=== PATIENT | female | born 1995 | race Caucasian/White ===

== ENCOUNTER 2018-10-21 17:35 | Emergency (ER) | payer BC, OTHER ==
[2018-10-21 17:52] VITALS: BP 122/57
--- NOTE | 2018-10-21 18:09 | UC ---
Lower Extremity/Ankle HPI - HPI Summary HPI Summary: 22-year-old female who injured her right ankle at work on October 16, 2018. 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 She was seen in [place] emergency room, had x-rays done and was told she had an ankle sprain. She used crutches yesterday and today she returned to work to a full 8 hour.she had some swelling and pain today so her employer sent her here for a recheck. - History of Current Complaint Chief Complaint: UCLowerExtremity Stated Complaint: WC RIGHT ANKLE INJURY Time Seen by Provider: 10/21/18 17:41 Hx Obtained From: Patient Hx Last Menstrual Period: 09/28/18 ?: No Onset/Duration: Gradual Onset Severity Initially: Moderate Severity Currently: Mild Pain Intensity: 3 Aggravating Factor(s): Ambulation Alleviating Factor(s): Rest, Elevation Able to Bear Weight: Yes Related History: Occupational Injury - Allergies/Home Medications Allergies/Adverse Reactions: Allergies Allergy/AdvReac Type Severity Reaction Status Date / Time No Known Allergies Allergy Verified 10/21/18 17:52 PMH/Surg Hx/FS Hx/Imm Hx Previously Healthy: Yes - Surgical History Surgical History: None - Family History Known Family History: Positive: Non-Contributory - Social History Occupation: Employed Full-time Alcohol Use: None Substance Use Type: None Smoking Status (MU): Never Smoked Tobacco - Immunization History Vaccination Up to Date: Yes Review of Systems All Other Systems Reviewed And Are Negative: Yes Musculoskeletal: Positive: Other: - Mild swelling to the lateral ankle. Is Patient Immunocompromised?: No Physical Exam Triage Information Reviewed: Yes Appearance: Well-Appearing, No Pain Distress, Well-Nourished Vital Signs: Initial Vital Signs Temp 98.7 F 10/21/18 17:47 Pulse 79 10/21/18 17:47 Resp 16 10/21/18 17:47 BP 122/57 10/21/18 17:47 Pulse Ox 100 10/21/18 17:47 Vital Signs Reviewed: Yes Musculoskeletal: Positive: Strength Intact, ROM Intact, Other: - Achilles is intact, mild swelling to the lateral malleolus, minimal tenderness on palpation , no deformity, erythema, bruising is noted. Good peripheral pulses neuro sensation and capillary refill. Nontender at the base of the first and fifth metatarsal. Neurological Exam: Normal Psychological Exam: Normal Skin Exam: Normal Lower Extremity Course/Dx - Course Course Of Treatment: Patient basically needed a note for work because she had some swelling and pain today when she was doing her job as a channeler insole. I'm giving her a note for work for light duty for one week and no excessive walking. She preferred to follow-up with an orthopedist in [place], [place]. She also has a Velcro ankle brace that she has been using and I encouraged her to into new using that. When she is taking a break at work she is to elevate her foot as much as possible. - Differential Dx/Diagnosis Provider Diagnosis: Right ankle sprain Discharge - Sign-Out/Discharge Documenting (check all that apply): Patient Departure All imaging exams completed and their final reports reviewed: No Studies - Discharge Plan Condition: Good Disposition: HOME Patient Education Materials: Ankle Sprain (DC) Forms: *Work Release Referrals: Kb Cornell PA [Primary Care Provider] - Additional Instructions: Continue to wear your ankle support. Tylenol or Motrin for pain. Follow-up with the orthopedist in [place] if no improvement in 5 or 6 days. - Billing Disposition and Condition Condition: GOOD Disposition: Home - Attestation Statements Provider Attestation: I was available for consult. This patient was seen by the [facility]. The patient was not presented to, seen by, or examined by me. -Cecily
== END 2018-10-21 18:11 | disposition home or self-care (01) ==
LOC: UCCORT 17:35
DX: S93.401A Sprain of unspecified ligament of right ankle, initial encounter (principal); X58.XXXA Exposure to other specified factors, initial encounter; Y93.E9 Activity, other interior property and clothing maintenance; Y92.59 Other trade areas as the place of occurrence of the external cause; Y99.0 Civilian activity done for income or pay
CPT/HCPCS: 99211; G0463